=== PATIENT | male | born 1985 | race African-American/Black ===

== ENCOUNTER 2016-10-05 20:45 | Inpatient (IN) | payer MEDICAID ==
[~2016-10-05] VITALS: Ht 188 cm; Wt 130.0 kg
[2016-10-05 22:25] LABS: BASOPHILS 0.1 % (0.0-2.0); EOSINOPHILS 0 % (0-7); HEMATOCRIT 45.4 % (42.0-54.0); HEMOGLOBIN 15.9 g/dL (13.5-17.5); IMMATURE GRANULOCYTES 0.3 % (0-5); LYMPHOCYTES 8.4 % (15-50); MCH 30.1 pg (26.0-34.0); MCV 85.8 fL (80.0-100.0); MEAN PLATELET VOLUME 9.6 fL (7.4-10.4); MONOCYTES 6.2 % (2-11); PLATELET COUNT 202 10x3/uL (130-400); RBC 5.29 10x6/uL (4.20-6.10); RDW 14.4 % (11.5-14.5); WBC 14.4 10x3/uL (4.8-10.8)
[2016-10-05 22:31] LABS: KETONE - SERUM SMALL mg/dL (NEGATIVE)
[2016-10-05 22:44] LABS: APPEARANCE HAZY (CLEAR); BILIRUBIN NEGATIVE (NEGATIVE); COLOR DK YELLOW (YELLOW); GLUCOSE NEGATIVE (NEGATIVE); KETONE LARGE mg/dL (NEGATIVE); LEUKOCYTE ESTERASE NEGATIVE (NEGATIVE); NITRITE NEGATIVE (NEGATIVE); PROTEIN 2+ mg/dL (NEGATIVE); UROBILINOGEN NORMAL (NORMAL)
[2016-10-05 22:47] LABS: BACTERIA MODERATE /hpf (NONE SEEN); MUCUS <1+ /lpf (NONE SEEN); RED CELLS - URINE 25-50 /hpf (0-5); WHITE CELLS - URINE 0-5 /hpf (0-5)
[2016-10-05 22:50] LABS: ALKALINE PHOSPHATASE 61 U/L (46-116); ALT (SGPT) 85 U/L (10-68); AMYLASE - SERUM 98 U/L (25-115); BILIRUBIN - TOTAL 1.75 mg/dL (0.2-1.3); CALC OSMOLALITY 269 mosm/kg (275-300); CALCIUM 10.1 mg/dL (8.5-10.1); CARBON DIOXIDE 11.3 mmol/L (21.0-32.0); CHLORIDE - SERUM 88 mmol/L (98-107); CREATININE - SERUM 2.5 mg/dL (0.6-1.3); GLUCOSE 126 mg/dL (74-106); LIPASE 371 U/L (73-393); POTASSIUM - SERUM 3.5 mmol/L (3.5-5.1); PROTEIN - SERUM 10.1 g/dL (6.4-8.2); SODIUM 134 mmol/L (136-145); UREA NITROGEN 13 mg/dL (7-18); eGFR NON AFRICAN AMERICAN 32 mL/min (90-120)
[2016-10-05 22:51] LABS: UDS - AMPHET NEGATIVE QUAL (NEGATIVE); UDS - BARB NEGATIVE QUAL (NEGATIVE); UDS - BENZO NEGATIVE QUAL (NEGATIVE); UDS - COCAINE NEGATIVE QUAL (NEGATIVE); UDS - METH NEGATIVE QUAL (NEGATIVE); UDS - OPIATE NEGATIVE QUAL (NEGATIVE); UDS - PCP NEGATIVE QUAL (NEGATIVE); UDS - THC NEGATIVE QUAL (NEGATIVE)
[2016-10-06 04:13] VITALS: BMI 37.3
[2016-10-06] MEDS ORDERED: NORVASC2.5 MG PO (04:24)
[2016-10-06] MEDS ORDERED: BYSTOLIC2.5 MG PO (04:24)
[2016-10-06 06:39] LABS: BASOPHILS 0.1 % (0.0-2.0); EOSINOPHILS 0 % (0-7); HEMATOCRIT 39.9 % (42.0-54.0); HEMOGLOBIN 13.6 g/dL (13.5-17.5); IMMATURE GRANULOCYTES 0.4 % (0-5); LYMPHOCYTES 10.4 % (15-50); MCH 29.1 pg (26.0-34.0); MCHC 34.1 g/dL (31.0-37.0); MCV 85.3 fL (80.0-100.0); MEAN PLATELET VOLUME 10.1 fL (7.4-10.4); MONOCYTES 7.5 % (2-11); NEUTROPHILS 81.6 % (40-80); PLATELET COUNT 168 10x3/uL (130-400); RBC 4.68 10x6/uL (4.20-6.10); RDW 14.5 % (11.5-14.5); WBC 10.9 10x3/uL (4.8-10.8)
[2016-10-06 07:08] LABS: ALBUMIN 4.1 g/dL (3.4-5.0); BILIRUBIN - TOTAL 1.36 mg/dL (0.2-1.3); CALCIUM 8.7 mg/dL (8.5-10.1); CARBON DIOXIDE 13.1 mmol/L (21.0-32.0); CREATININE - SERUM 1.7 mg/dL (0.6-1.3); POTASSIUM - SERUM 3.1 mmol/L (3.5-5.1); PROTEIN - SERUM 8.4 g/dL (6.4-8.2)
[2016-10-06 08:49] VITALS: BP 187/112
[2016-10-06] MEDS ORDERED: BYSTOLIC10 MG PO (09:12)
[2016-10-06] MEDS ORDERED: NORVASC10 MG PO (09:13)
--- NOTE | 2016-10-06 09:35 | NUR ---
IV PATENT. CALL LIGHT IN REACH. WILL MONITOR NEEDS.
--- NOTE | 2016-10-06 12:03 | NUR ---
APRESSOLINE 10 MG GIVEN FOR B/P 183/105. WILL MONITOR.
[2016-10-06 12:43] VITALS: BP 183/105
[2016-10-06 13:11] VITALS: Ht 188 cm; Wt 130.0 kg
--- NOTE | 2016-10-06 16:03 | NUR ---
UP AMBULATING HALLWAY WITH FAMILY MEMBER. REFUSES SCDS AT THIS TIME.
--- NOTE | 2016-10-06 16:13 | NUR ---
Patient Name: MAGUI BOSTON Admission Status: ER Accout number: [id number] Admission Date: 10-06-2016 : 1985 Admission Diagnosis:ACIDOSIS Attending: SARABJIT Current LOS: 1 Anticipated DC Date: Planned Disposition: Home Primary Insurance: UNINSURED DISCOUNT PLAN Discharge Planning Comments: * Is the patient Alert and Oriented? Yes 0 * How many steps to enter\exit or inside your home? NONE 0 * PCP DR. PARADA 0 * Pharmacy NO PHARMACY PREFERENCE 0 * Preadmission Environment Home with Family 0 * ADLs Independent 0 * Equipment Other 0 * Other Equipment BLOOD PRESSURE MONITOR 0 * List name and contact numbers for known caregivers / representatives who currently or will assist patient after discharge: ALBERT AGRAWAL, MOTHER, 0 * Community resources currently utilized None 0 * Please name any agencies selected above. NONE 0 * Additional services required to return to the preadmission environment? No 0 * Can the patient safely return to the preadmission environment? Yes 0 * Has this patient been hospitalized within the prior 30 days at any hospital? No 0 CM RECEIVED ORDER FOR ALCOHOL OR DRUG USE SCREENING. CM MET WITH PT IN ROOM TO DISCUSS DISCHARGE PLANNING AND NEEDS. PT REPORTS LIVING AT HOME INDEPENDENTLY WITH HER AN ADULT ROOM MATE. PT HAS A BLOOD PRESSURE CUFF AND NO MEDICAL EQUIPMENT PROVIDER PREFERENCE. PT HASD NO OUTSIDE SERVICES ASSISTING IN THE HOME. CM DISCUSSED AVAILABILITY OF HOME HEALTH, REHAB SERVICES AND MEDICAL EQUIPMENT. PT DENIES DISCHARGE NEEDS, REPORTS HIS FRIEND WILL PICK HIM UP FOR DISCHARGE HOME. CM DICUSSED SUBSTANCE ABUSE. PT DENIES HAVING ANY PROBLEMS WITH ALCOHOL OR DRUG ABUSE. PT REPORTS THIS TO BE A ONE TIME THING AFTER LOSING HIS JOB. PT DRANK VODKA FOR 1 1/2 DAYS AND BECAME DEHYDRATED AND THE DOCTOR IS CONCERNED ABOUT HIS KIDNEYS. CM PROVIDED AND DISCUSSED LOCAL AND STATEWIDE RESOURCES FOR ADDICTION ASSISTANCE. PT DENIED NEED OF RESOURCES. 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 PT DENIED NEED FOR ADDICTION RESOURCES, PLANS TO DISCHARGE HOME WITH ADULT ROOMMATE. CM TO FOLLOW AND ASSIST IF NEEDED. Conference Services Manager: Alex oJhnson
[2016-10-06 17:19] VITALS: BP 167/107
--- NOTE | 2016-10-06 20:21 | NUR ---
PT RESTING IN BED. ALERT/ORIENTED. AT BEDSIDE. CURRENTLY HAS IVF DRNS @ 75ML/HR INFUSING AND THIS WILL ALTERNATE WITH BANANA BAG. PT IS ON CLEAR LIQUIDS AND IS TRYING TO EAT SOME JELLO, BUT HE IS NOT A LIKER OF JELLO. NONLABORED RESPIRATIONS ON ROOM AIR. LAB JUST ENTERED ROOM TO COLLECT SPECIMEN FOR FOLLOW UP ON POTASSIUM PROTOCOL. SEE ASSESSMENT. CPOC.
[2016-10-06 21:08] VITALS: BP 144/92
[2016-10-07 00:07] VITALS: BP 123/80
--- NOTE | 2016-10-07 01:49 | NUR ---
PT IS ALTERNATING BETWEEN BANANA BAG AND NS, CURRENTLY, NEW BANANA BAG UP AND INFUSING. PT RESTING WITH EYES CLOSED. NO DISTRESS.
[2016-10-07 04:15] VITALS: BP 149/98
[2016-10-07 05:30] LABS: BASOPHILS 0.1 % (0.0-2.0); HEMATOCRIT 37.6 % (42.0-54.0); HEMOGLOBIN 13.1 g/dL (13.5-17.5); IMMATURE GRANULOCYTES 0.4 % (0-5); LYMPHOCYTES 17.1 % (15-50); MCH 29.4 pg (26.0-34.0); MCHC 34.8 g/dL (31.0-37.0); MCV 84.3 fL (80.0-100.0); MEAN PLATELET VOLUME 9.8 fL (7.4-10.4); MONOCYTES 7.8 % (2-11); NEUTROPHILS 73.6 % (40-80); PLATELET COUNT 126 10x3/uL (130-400); RBC 4.46 10x6/uL (4.20-6.10); RDW 14.2 % (11.5-14.5); WBC 7.7 10x3/uL (4.8-10.8)
[2016-10-07 06:02] LABS: ALBUMIN 3.8 g/dL (3.4-5.0); BILIRUBIN - TOTAL 1.38 mg/dL (0.2-1.3); CALCIUM 9.2 mg/dL (8.5-10.1); PROTEIN - SERUM 7.6 g/dL (6.4-8.2)
[2016-10-07 06:03] LABS: ANION GAP 18.1 mmol/L (8-16); CARBON DIOXIDE 22.7 mmol/L (21.0-32.0); CREATININE - SERUM 1.2 mg/dL (0.6-1.3); POTASSIUM - SERUM 2.8 mmol/L (3.5-5.1)
--- NOTE | 2016-10-07 06:28 | NUR ---
POTASSIUM LEVEL THIS AM 2.9 ADMINISTERED 20MEQ POTASSIUM LIQUID PER ELECTROLYTE PROTOCOL.
--- NOTE | 2016-10-07 07:30 | NUR ---
AROUSES EASILY, DENIES NEEDS. ON EP, WILL MONITOR LAB VALUES AND REPLACE NEEDED. K+ IS 2.8 THIS AM. BANANA BAG INFUSING TO RIGHT FA AT 125, WILL ALTERNATE TO D5NS AT 75 FOR NEXT BAG. ON ROOM AIR. ON HEART MONITOR SHOWING SR, HR 96.
[2016-10-07 08:23] VITALS: BP 124/85
[2016-10-07 12:17] VITALS: BP 122/75
--- NOTE | 2016-10-07 13:31 | NUR ---
IV TO RIGHT HAND IS STARTING TO SWELL AND GET PUFFY LOOKING, INFILTRAE ?. PATIENT DENIES PAIN TO IT. RE-SITED TO LEFT HAND X 1 STICK WITH 22 G.
--- NOTE | 2016-10-07 15:07 | NUR ---
K+ REDRAW WITH RESULTS OF 3.6.
[2016-10-07 15:15] VITALS: BP 152/90
--- NOTE | 2016-10-07 17:39 | NUR ---
DENIES NEEDS AT PRESENT TIME. EATING A REGULAR SUPPER, AT BEDSIDE. WILL CONTINUE TO MONITOR.
--- NOTE | 2016-10-07 19:30 | NUR ---
INITIAL ROUNDS MADE. PT SITTING UP IN BED WATCHING TV. DENIES NEEDS OR C/O AT THIS TIME. WILL CONT TO MONITOR.
[2016-10-07 20:00] VITALS: BP 133/89
--- NOTE | 2016-10-08 00:53 | NUR ---
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 NEEDS ADDRESSED, CALL LIGHT IN REACH. WILL CONT TO MONITOR.
--- NOTE | 2016-10-08 05:01 | NUR ---
RESTING WELL WITH EYES CLOSED, CONT TO MONITOR.
[2016-10-08 05:32] LABS: BASOPHILS 0.2 % (0.0-2.0); EOSINOPHILS 1.8 % (0-7); HEMOGLOBIN 12.3 g/dL (13.5-17.5); LYMPHOCYTES 22.8 % (15-50); MCH 28.5 pg (26.0-34.0); MCHC 34.2 g/dL (31.0-37.0); MCV 83.5 fL (80.0-100.0); MEAN PLATELET VOLUME 10.5 fL (7.4-10.4); MONOCYTES 4.9 % (2-11); NEUTROPHILS 70.3 % (40-80); PLATELET COUNT 105 10x3/uL (130-400); RBC 4.31 10x6/uL (4.20-6.10); RDW 14.1 % (11.5-14.5)
[2016-10-08 05:35] LABS: WBC 5.7 10x3/uL (4.8-10.8)
[2016-10-08 05:52] LABS: ALBUMIN 3.4 g/dL (3.4-5.0); ALKALINE PHOSPHATASE 41 U/L (46-116); BILIRUBIN - TOTAL 1.53 mg/dL (0.2-1.3); CALCIUM 8.8 mg/dL (8.5-10.1); CHLORIDE - SERUM 101 mmol/L (98-107); CREATININE - SERUM 0.9 mg/dL (0.6-1.3); GLUCOSE 108 mg/dL (74-106); SODIUM 138 mmol/L (136-145); eGFR NON AFRICAN AMERICAN > 90 mL/min (90-120)
[2016-10-08 05:53] LABS: CALC OSMOLALITY 273 mosm/kg (275-300); UREA NITROGEN 4 mg/dL (7-18)
[2016-10-08 05:54] LABS: ALT (SGPT) 159 U/L (10-68); POTASSIUM - SERUM 2.7 mmol/L (3.5-5.1)
[2016-10-08 07:00] VITALS: BP 122/67
--- NOTE | 2016-10-08 07:17 | NUR ---
AM ROUNDING DONE WITH PATIENT APPEARING ASLEEP. RESP ARE EVEN AND NON LABORED. BANANA BAG SEEN INFUSING TO LEFT HAND WITHOUT PROBLEMS. ON HEART MONITOR SHOWING SR, HR 88. ON ROOM AIR. K+ IS DOWN, WILL FOLLOW REPLACEMENT FROM THIS AM.
--- NOTE | 2016-10-08 11:52 | NUR ---
NOTIFIED BY [employer] THAT PATIENT'S BLOOD PRESSURE IS 170/105. HE HAS PRN APRESOLINE FOR S>150 OR D>105. WILL CONTINUE TO MONITOR AND ASSESS B/P. TEMP IS 100, WILL ENCOURAGE COUGH AND DEEP BREATH.
[2016-10-08 11:56] VITALS: BP 163/105
--- NOTE | 2016-10-08 13:14 | NUR ---
PATIENT AND FEMALE MEMBER ARE UP AMBULATING IN HALLWAY. WILL CONTINUE TO MONITOR. IV HAS BEEN SALINE LOCKED ORDERED.
--- NOTE | 2016-10-08 13:31 | NUR ---
RADIOLOGY HERE FOR PORTABLE CXR.
--- NOTE | 2016-10-08 15:12 | NUR ---
K+ RESULTS FROM RE-DRAW ARE 3.1, WILL GIVE ANOTHER 40 MEQ X 1 PER PROTOCOL.
[2016-10-08 16:00] VITALS: BP 135/82
--- NOTE | 2016-10-08 16:56 | NUR ---
DENIES NEEDS AT PRESENT TIME. AWAITING BLOOD DRAW FOR POTASSIUM LEVEL. WILL CONTINUE TO MONITOR.
--- NOTE | 2016-10-08 20:17 | NUR ---
INITIAL ROUNDS COMPLETED AT 191 HRS. PT DENED ANY DISCOMFORT. AMBULATED HALLWAYS WITHOUT DIFFICULTY. GAIT EVENA ND STEADY. ASSESSMENT COMPLETED AT 1934 HRS. VSS. SR PER CM HR 95. LUNGS CTA. IV TO L HAND SL. WILL CONTINUE TO MONITOR. SR UP X2, CALL LIGHT WITHIN REACH.
[2016-10-08 21:24] VITALS: BP 149/83
--- NOTE | 2016-10-08 21:57 | NUR ---
PT WATCHNG TV; DENIES ANY DISCOMFORT.
--- NOTE | 2016-10-09 00:09 | NUR ---
PT RESTING WITH EYES CLOSED. RESP EVEN AND REGULAR. SR UP X2, CALL LIGHT WITHIN REACH.
[2016-10-09 00:30] VITALS: BP 137/86
--- NOTE | 2016-10-09 02:21 | NUR ---
PT RESTING WITH EYES CLOSED. RESP EVEN AND REGULAR. SR UP X2, CALL LIGHT WITHIN REACH.
--- NOTE | 2016-10-09 04:18 | NUR ---
PT AWAKE; DENIES ANY DISCOMFORT. REFUSED 0300 MVI INFUSION. WILL CONTINUE TO MONITOR.
[2016-10-09 04:30] VITALS: BP 128/76
[2016-10-09 05:10] LABS: BASOPHILS 0.3 % (0.0-2.0); EOSINOPHILS 1.8 % (0-7); HEMATOCRIT 36.6 % (42.0-54.0); HEMOGLOBIN 12.6 g/dL (13.5-17.5); IMMATURE GRANULOCYTES 0.1 % (0-5); MCH 28.9 pg (26.0-34.0); MCHC 34.4 g/dL (31.0-37.0); MCV 83.9 fL (80.0-100.0); MEAN PLATELET VOLUME 10.8 fL (7.4-10.4); MONOCYTES 6.1 % (2-11); NEUTROPHILS 70.7 % (40-80); PLATELET COUNT 119 10x3/uL (130-400); RBC 4.36 10x6/uL (4.20-6.10); RDW 14.3 % (11.5-14.5); WBC 6.7 10x3/uL (4.8-10.8)
[2016-10-09 05:14] LABS: ALBUMIN 3.5 g/dL (3.4-5.0); ALKALINE PHOSPHATASE 52 U/L (46-116); ALT (SGPT) 303 U/L (10-68); CALC OSMOLALITY 276 mosm/kg (275-300); CALCIUM 8.9 mg/dL (8.5-10.1); CARBON DIOXIDE 29.6 mmol/L (21.0-32.0); CHLORIDE - SERUM 102 mmol/L (98-107); CREATININE - SERUM 0.8 mg/dL (0.6-1.3); GLUCOSE 99 mg/dL (74-106); POTASSIUM - SERUM 2.8 mmol/L (3.5-5.1); PROTEIN - SERUM 7.3 g/dL (6.4-8.2); SODIUM 140 mmol/L (136-145); UREA NITROGEN 7 mg/dL (7-18); eGFR NON AFRICAN AMERICAN > 90 mL/min (90-120)
--- NOTE | 2016-10-09 06:08 | NUR ---
VSS THROUGHOUT NGIHT. PT DENIED ANY DISCOMFORT. AM K+ 2.8. 20 MEQ KCL GIVEN IN 120CC OF APPLE JUICE. NEEDS MET; WILL CONTINUE TO MONITOR.
--- NOTE | 2016-10-09 08:04 | NUR ---
AM ROUNDING DONE WITH PATIENT AMBULATING IN HALLWAY. IS AT BEDISDE. SALINE LOCK SEEN TO LEFT HAND. ON HEART MONITOR SHOWING SR, HR 89. K+ IS DOWN AGAIN THIS AM, WILL FOLLOW WITH SUPPLEMENTS.
[2016-10-09 08:32] VITALS: BP 144/92
[2016-10-09 12:30] VITALS: BP 123/75
[2016-10-09] MEDS ORDERED: K-DUR20 MEQ PO (13:29)
[2016-10-09] MEDS ORDERED: COZAAR25 MG PO (13:29)
--- NOTE | 2016-10-09 15:09 | NUR ---
VERBAL AND WRITTEN DISCHARGE INSTRUCTIONS GIVEN TO PATIENT. SALINE LOCK REMOVED WITH CATH TIP INTACT INTACT. DISCHARGED HOME VIA WHEELCHAIR.
== END 2016-10-09 15:12 | disposition home or self-care (01) | DRG 641 ==
LOC: D.ER 20:45 → D.M2 10-06 02:55
PROVIDERS: Emergency Medicine; ADMIT Family Medicine
DX: E87.2 Acidosis (principal); N17.9 Acute kidney failure, unspecified; F17.203 Nicotine dependence unspecified, with withdrawal; I16.0 Hypertensive urgency; E87.6 Hypokalemia; R94.5 Abnormal results of liver function studies; R74.0 Nonspecific elevation of levels of transaminase and lactic acid dehydrogenase [LDH]